=== PATIENT | female | born 1975 | race Caucasian/White ===

== ENCOUNTER 2024-12-03 02:03 | Emergency (ER) | payer MEDICAID ==
[~2024-12-03] VITALS: Ht 157.5 cm; Wt 54.5 kg
[2024-12-03] MEDS: MORPHINE 2 MG/ML 1 ML VIAL IM ONE (07:05)
[2024-12-03] MEDS ORDERED: HOME MED LIST COMPLETE! XX SCH (08:30)
[2024-12-03 08:31] VITALS: BP 126/68
[2024-12-03] MEDS: IBUPROFEN 600 MG TAB PO ONE (08:57)
[2024-12-03 09:00] VITALS: TEMP 97.2; O2SAT 99
== END 2024-12-03 09:22 | disposition home or self-care (01) ==
LOC: M ED 02:03 → EDBD 02:03 → M ED 09:22
DX: S00.83XA Contusion of other part of head, initial encounter (principal); S80.02XA Contusion of left knee, initial encounter; S20.211A Contusion of right front wall of thorax, initial encounter; Y92.410 Unspecified street and highway as the place of occurrence of the external cause; Y93.9 Activity, unspecified; Y99.9 Unspecified external cause status; Y04.0XXA Assault by unarmed brawl or fight, initial encounter